=== PATIENT | female | born 1990 | race Caucasian/White ===

== ENCOUNTER 2016-10-01 11:28 | Emergency (ER) | payer OTHER ==
[~2016-10-01] VITALS: Wt 60.0 kg
[2016-10-01] MEDS ORDERED: PSEU120T11 PO (12:04)
[2016-10-01] MEDS ORDERED: AZIT250T94 PO (12:04)
[2016-10-01] MEDS ORDERED: FLUT9.9S NASAL (12:04)
[2016-10-01] MEDS ORDERED: IBUP-1542 PO (12:04)
--- NOTE | 2016-10-08 19:22 | ERD ---
ER Documentation Chief Complaint Date/Time DATE: 10/08/16 TIME: 19:20 Chief Complaint SORE THROAT SINCE LAST NIGHT. NO RECENT FEVERS. HPI 25-year-old female presents with fever and sore throat for 1 day. There is no significant cough, vomiting, abdominal pain, neck stiffness, rashes. There is no urinary complaints. ROS All systems reviewed and are negative except as per history of present illness. Medications Home Meds Active Scripts Ibuprofen* (Motrin*) 600 Mg Tab, 600 MG PO Q6, #15 TAB Prov:DIOR WAGONER MD 10/01/16 Pseudoephedrine Hcl (Sudafe 12-Hour) 120 Mg Tablet.er, 120 MG PO BID Y for CONGESTION for 5 Days, #10 TAB.SA Prov:DIOR WAGONER MD 10/01/16 Azithromycin* (Zithromax*) 250 Mg Tablet, 250 MG PO .ZPACK DIRECTED, #6 TAB TAKE 500 MG (2 TABS) THE FIRST DAY THEN 250 MG (1 TAB) DAYS 2-5 Prov:DIOR WAGONER MD 10/01/16 Fluticasone Propionate (Flonase Allergy Relief) 9.9 Ml [place].susp, 2 SPRAY NASAL DAILY for 7 Days, #1 BOTTLE TO EACH NOSTRIL Prov:DIOR WAGONER MD 10/01/16 PMhx/Soc Medical and Surgical Hx: pt denies Medical Hx, pt denies Surgical Hx Physical Exam Physical Exam Const: [] Alert, [id number]. Head: Atraumatic Eyes: Normal Conjunctiva ENT: Normal External Ears, Nose and Mouth. Mild redness in the throat and clear nasal discharge Neck: Full range of motion..~ No meningismus. Resp: Clear to auscultation bilaterally Cardio: Regular rate and rhythm, no murmurs Abd: Soft, non tender, non distended. Normal bowel sounds Skin: No petechiae or rashes Back: No midline or flank tenderness Ext: No cyanosis, or edema Neur: Awake and alert Psych: Normal Mood and Affect Procedures/MDM Patient presents with URI symptoms, likely viral illness. Patient does complain of slight productive cough and will be given a prescription for Zithromax but encouraged to hold take for productive sputum in 3-4 days. Patient shows no signs of hypoxemia, respiratory distress, signs or symptoms of significant bacterial infection. The patient was stable with no new complaints during the ER course. Clinically, there is no current evidence to suggest meningitis, sepsis, acute abdomen, pneumonia, acute coronary syndrome, pulmonary embolism, or any other emergent condition appearing to require further evaluation or hospitalization. The patient should certainly return for any new or worsening symptoms per the aftercare instructions. They should otherwise follow-up with her primary care doctor for reevaluation this week. Departure Diagnosis: Primary Impression: URI, acute Additional Impression: Sore throat Condition: Stable Patient Instructions: Sinusitis, Abx Tx, Uri, Viral, No Abx (Adult) Additional Instructions: Likely viral illness. Okay to hold prescription of antibiotics (Zithromax) for 3-5 days and take for persistent symptoms or productive mucus. Recheck otherwise for new or worsening symptoms DIOR WAGONER MD Oct 08, 2016 19:22
== END 2016-10-01 12:13 | disposition home or self-care (01) ==
LOC: FTE 11:28
DX: J06.9 Acute upper respiratory infection, unspecified (principal)
CPT/HCPCS: 99283